=== PATIENT | male | born 1995 | race Hispanic/Latino ===

== ENCOUNTER 2022-07-18 10:52 | Emergency (ER) | payer SELFPAY ==
[~2022-07-18] VITALS: Ht 167.6 cm; Wt 114.0 kg
[~2022-07-18 10:52] MED LIST: AUGMENTIN875TAB PO
[2022-07-18 11:01] VITALS: BP 135/92
[2022-07-18 11:15] VITALS: BP 132/93
[2022-07-18] MEDS ORDERED: MOTRIN400 MG/TAB PO (11:28)
[2022-07-18 11:31] VITALS: BP 144/101
[2022-07-18 11:44] VITALS: BP 140/80
== END 2022-07-18 11:46 | disposition home or self-care (01) | DRG 605 ==
LOC: ED 10:52
DX: S30.0XXA Contusion of lower back and pelvis, initial encounter (principal); W18.30XA Fall on same level, unspecified, initial encounter